=== PATIENT | male | born 1970 | race African-American/Black ===

== ENCOUNTER 2016-08-25 08:43 | Emergency (ER) | payer MEDICAID ==
[2016-08-25 08:52] VITALS: BMI 30.1
--- NOTE | 2016-08-25 09:23 | DR.GENAD ---
HPI - PCP Primary Care Physician: none - Complaint/Symptoms Chief Complaint Doctors Comments: Occassional SOB and lightheadedness. Chief Complaint:: pt has been feeling lightheaded the past couple of days he has not had his meds in about a month because he can no longer afford them at this time - Source History Provided: Patient - Mode of Arrival Mode of Arrival: Ambulatory - Timing Onset of Chief Complaint: 08/23/16 - Duration Duration: Intermittent Duration: Minutes - Severity Severity: Mild PMH - PMH Past Medical History: Yes Past Medical History: Coronary Artery Disease, Hypertension, [place] Past Surgical History: Yes Surgical History: CABG/Valve Surgery, Other - Family History History of Family Medical Conditions: Yes Family Medical History: Diabetes Mellitus - Social History Does patient currently use any type of tobacco product: Yes Have you used tobacco products in the last 12 months: Yes Type of Tobacco Use: Cigarettes How many years tobacco product used: 15 Does any household member use tobacco: No Alcohol Use: None Do you use any recreational Drugs:: No Lives With: Family Lives Where: Home - infectious screening In the last 2 months have you had wt loss of >10#?: NO Have you had fever, night sweats or hemotysis?: No Have you traveled outside the country in the last 6 months?: No Isolation: Standard ROS - Review of Systems Constitutional: No Symptoms Reported Eyes: No Symptoms Reported ENTM: No Symptoms Reported Respiratoy: Short of Breath Cardiovascular: No Symptoms Reported Gastrointestinal/Abdominal: No Symptoms Reported Genitourinary: No Symptoms Reported Neurological: Dizziness Musculoskeletal: No Symptoms Reported Integumentary: No Symptoms Reported Hematologic/Lymphatic: No Symptoms Reported Endocrine: No Symptoms Reported Psychiatric: Anxiety All Other Systems: Reviewed and Negative PE - Vital Signs Vitals: Temperature 98 F Pulse Rate 71 Respiratory Rate 18 Blood Pressure [Left Arm] 129/69 Blood Pressure [Standing] 143/89 Blood Pressure [Sitting] 160/92 Blood Pressure [Lying] 139/69 Blood Pressure 148/81 O2 Sat by Pulse Oximetry 100 - General Limitations: No Limitations General Appearance: In No Apparent Distress - Head Head Exam: Normal Inspection - Neck Neck Exam: Normal Inspection - Chest Chest Inspection: Normal Inspection - Respiratory Respiratory Exam: Normal Lung Sounds Bilat Respiratory Exam: Bilateral Clear to Auscultation - Cardiovascular Cardiovascular Exam: Regular Rate, Normal Rhythm, Systolic Murmur - Abdominal Exam Abdominal Exam: Normal Inspection - Extremities Extremities Exam: Normal Inspection - Back Back Exam: Normal Inspection - Neurologic Neurological Exam: Alert, Oriented X3, CN II-XII Intact, Normal Gait - Psychiatric Psychiatric Exam: Anxious - Skin Skin Exam: Warm, Dry, Intact, Normal Color MDM - Differential Diagnosis Differential Diagnosis: Nicotine withdrawal, anxiety ROR - Labs Reviewed Result Diagrams: 08/25/16 09:34 08/25/16 09:34 Laboratory: WBC 4.7 X10^3/uL (3.6-10.0) 08/25/16 09:34 RBC 4.53 X10^6/uL (4.7-6.0) L 08/25/16 09:34 Hgb 15.3 g/dL (13.5-18.0) 08/25/16 09:34 Hct 43.3 % (42.0-54.0) 08/25/16 09:34 MCV 95.6 fL (80.0-100.0) 08/25/16 09:34 MCH 33.8 pg (27.0-34.0) 08/25/16 09:34 MCHC 35.3 g/dL (33.0-35.0) H 08/25/16 09:34 RDW 14.1 % (11.6-16.5) 08/25/16 09:34 Plt Count 277 X10^3/uL (150.0-450.0) 08/25/16 09:34 MPV 9.0 fL (7.4-11.0) 08/25/16 09:34 Neut % 37.4 % (42.0-75.0) L 08/25/16 09:34 Lymph % 49.2 % (21.0-51.0) 08/25/16 09:34 [place] % 10.3 % (0.0-13.0) 08/25/16 09:34 Eos % 2.1 % (0.9-2.9) 08/25/16 09:34 Baso % 1.0 % (0.2-1.0) 08/25/16 09:34 Neut # 1.8 x10^3/uL (2.2-4.8) L 08/25/16 09:34 Lymph # 2.3 X10^3/uL (1.3-2.9) 08/25/16 09:34 [place] # 0.5 x10^3/uL (0.3-0.8) 08/25/16 09:34 Eos # 0.1 x10^3/uL (0.0-0.2) 08/25/16 09:34 Baso # 0.0 X10^3/uL (0.0-0.1) 08/25/16 09:34 Absolute Nucleated RBC 0.1 /100WBC 08/25/16 09:34 Sodium 141 mmol/L (136-145) 08/25/16 09:34 Corrected Sodium TNP 08/25/16 09:34 Potassium 3.8 mmol/L (3.5-5.1) 08/25/16 09:34 Chloride 107 mmol/L (98-107) 08/25/16 09:34 Carbon Dioxide 26.2 mmol/L (21-32) 08/25/16 09:34 BUN 11 mg/dL (7-18) 08/25/16 09:34 Creatinine 1.05 mg/dL (0.70-1.30) 08/25/16 09:34 Est GFR (MDRD) Af Amer > 60 (>60) 08/25/16 09:34 Est GFR (MDRD) Non-Af > 60 (>60) 08/25/16 09:34 Glucose 108 mg/dL (65-99) H 08/25/16 09:34 Calcium 8.6 mg/dL (8.5-10.1) 08/25/16 09:34 Corrected Calcium TNP 08/25/16 09:34 Total Bilirubin 0.50 mg/dL (0.2-1.0) 08/25/16 09:34 AST 18 Units/L (15-37) 08/25/16 09:34 ALT 24 Units/L (12-78) 08/25/16 09:34 Alkaline Phosphatase 83 Units/L (46-116) 08/25/16 09:34 B-Natriuretic Peptide 23.9 pg/mL (0-79) 08/25/16 09:34 Total Protein 7.5 g/dL (6.4-8.2) 08/25/16 09:34 Albumin 3.6 g/dL (3.4-5.0) 08/25/16 09:34 Globulin 3.9 g/dL (2.5-4.5) 08/25/16 09:34 Albumin/Globulin Ratio 0.9 Ratio (1.1-2.1) L 08/25/16 09:34 - EKG Compared to prior EKG Dated: 05/03/16 (no acute changes) Rate: 63 [place]: LAD Rhythm: NSR - Diagnosis Discharge Problem: Nicotine dependence with withdrawal, Anxiety about health, Arteriosclerotic cardiovascular disease (ASCVD), Hypertension, S/P CABG x 3 - Discharge Plan Disposition: 01 HOME, SELF-CARE - Follow ups/Referrals Follow ups/Referrals: NFD,None [Primary Care Provider] - 3 days - Instructions Instructions: Panic Attacks, [id number]
[2016-08-25 09:43] VITALS: BP 160/92
[2016-08-25 09:43] LABS: EOSINOPHILS # (AUTO) 0.1 x10^3/uL (0.0-0.2); EOSINOPHILS % (AUTO) 2.1 % (0.9-2.9); HEMATOCRIT 43.3 % (42.0-54.0); HEMOGLOBIN 15.3 g/dL (13.5-18.0); LYMPHOCYTES # (AUTO) 2.3 X10^3/uL (1.3-2.9); LYMPHOCYTES % (AUTO) 49.2 % (21.0-51.0); MEAN CORPUSCULAR HEMOGLOBIN 33.8 pg (27.0-34.0); MEAN CORPUSCULAR HGB CONC 35.3 g/dL (33.0-35.0); MEAN CORPUSCULAR VOLUME 95.6 fL (80.0-100.0); MONOCYTES # (AUTO) 0.5 x10^3/uL (0.3-0.8); MONOCYTES % (AUTO) 10.3 % (0.0-13.0); NEUTROPHILS # (AUTO) 1.8 x10^3/uL (2.2-4.8); NEUTROPHILS % (AUTO) 37.4 % (42.0-75.0); PLATELET COUNT 277 X10^3/uL (150.0-450.0); RED BLOOD COUNT 4.53 X10^6/uL (4.7-6.0); RED CELL DISTRIBUTION WIDTH 14.1 % (11.6-16.5); WHITE BLOOD COUNT 4.7 X10^3/uL (3.6-10.0)
[2016-08-25 09:53] LABS: ALANINE AMINOTRANSFERASE 24 Units/L (12-78); ALBUMIN 3.6 g/dL (3.4-5.0); ALKALINE PHOSPHATASE 83 Units/L (46-116); ASPARTATE AMINO TRANSFERASE 18 Units/L (15-37); BLOOD UREA NITROGEN 11 mg/dL (7-18); CALCIUM 8.6 mg/dL (8.5-10.1); CARBON DIOXIDE 26.2 mmol/L (21-32); CHLORIDE 107 mmol/L (98-107); CREATININE 1.05 mg/dL (0.70-1.30); GLUCOSE 108 mg/dL (65-99); SODIUM 141 mmol/L (136-145); TOTAL PROTEIN 7.5 g/dL (6.4-8.2); eGFR BLACK RACES > 60 (>60); eGFR NON BLACK RACES > 60 (>60)
--- NOTE | 2016-08-25 10:04 | RAD ---
HISTORY: Shortness of breath. Study: Chest two views Comparison: May 03, 2016. Findings: The trachea is midline. The cardiac silhouette is enlarged. Median sternotomy wires are again noted . There is no evidence of consolidation, significant infiltrate, effusion, or pneumothorax. The [facility] thorax is unremarkable. IMPRESSION: 1. No acute pulmonary abnormality. 2. Cardiomegaly. Reported By:
== END 2016-08-25 11:02 | disposition home or self-care (01) ==
LOC: ER 08:43
DX: F17.200 Nicotine dependence, unspecified, uncomplicated (principal); F41.8 Other specified anxiety disorders; I25.10 Atherosclerotic heart disease of native coronary artery without angina pectoris; Z95.1 Presence of aortocoronary bypass graft
CPT/HCPCS: 36415; 71020; 80053; 83880; 85025; 93005; 93010; 99282

== ENCOUNTER 2017-01-12 18:00 | Emergency (ER) | payer MEDICAID, OTHER ==
--- NOTE | 2017-01-12 18:24 | DR.CP ---
HPI - Time Seen Time seen: 18:20 - PCP Primary Care Physician: JESUSITA - HPI Comment HPI Comment: PATIENT DEVE PRECORDIAL CHEST PAIN AND LEFT SHOULDER PAIN TIMES SEVERAL HOURS. 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 NO IMMEDIATE PAIN. SHOULDER MOTION LT DECREASE. STRONG FAMILY HISTORY OF CAD. PATIENT HAD GABG, 3 VESSLES 10 MONTHS AGO. CURRENT MEDICATION NOT TAKING RECOMMENDED. OUT OF SEVERAL OF HIS MEDS FOR FEW DAYS NOW. - Complaint Chief Complaint Doctor Comments: CHEST PAIN. Chief Complaint:: PT. C/O PAIN TO UNDER LEFT BREAST. PT. STATES "IT FEELS LIKE A PULLED MUSCLE." UNABLE TO ELEVATE LEFT ARM BECAUSE OF THE DISCOMFORT. PT. STATES HE WAS OUT IN THE YARD YESTERDAY PICKING UP STUFF AND THE PAIN BEGAN LAST NIGHT. PAIN WORSENS ON MOVEMENT. - Reviewed Nurses Notes Review: Yes - Source History Provided: Patient - Mode of Arrival Mode of Arrival: Ambulatory - Timing Onset of Chief Complaint: 01/11/17 Came on: Suddenly Pain: Present Now - Duration Duration: Constant Duration: Days - Location Location of Chest Pain: Left, Chest Chest Pain Radiation Location: Left Arm, Left Shoulder - Context PE Risk Factors: Recent Trauma/Surgery History of: Similar pain in the past Prehospital Care: None - Quality Quality: Sharp - Severity Severity: Moderate - Modifying Factors Worsens: Coughing, Movement Impoves: Nothing - Associated Signs and Symptoms Associated Signs and Symptoms: Shortness of Breath (ON EXERTION) PMH - PMH Past Medical History: Yes Past Medical History: Coronary Artery Disease, Hypertension, [place] Past Surgical History: Yes Surgical History: CABG/Valve Surgery, Other - Family History History of Family Medical Conditions: Yes Family Medical History: Diabetes Mellitus - Social History Does patient currently use any type of tobacco product: No Have you used tobacco products in the last 12 months: Yes Type of Tobacco Use: None Does any household member use tobacco: No Alcohol Use: None Do you use any recreational Drugs:: No Lives With: Spouse Lives Where: Home - infectious screening In the last 2 months have you had wt loss of >10#?: NO Have you had fever, night sweats or hemotysis?: No Have you traveled outside the country in the last 6 months?: No Isolation: Standard ROS - Review of Systems Constitutional: No Symptoms Reported, Weakness, Fatigue. negative: Chills, Fever Eyes: No Symptoms Reported ENTM: No Symptoms Reported Respiratoy: Short of Breath. negative: Productive Cough, Non-Productive Cough, Wheezing, Hemoptysis Cardiovascular: Chest Pain. negative: Edema Gastrointestinal/Abdominal: negative: Abdominal Pain, Diarrhea, Nausea, Vomiting Genitourinary: No Symptoms Reported. negative: Dysuria, Frequency, Hematuria Neurological: Weakness Musculoskeletal: Muscle Pain Integumentary: No Symptoms Reported Hematologic/Lymphatic: No Symptoms Reported Endocrine: No Symptoms Reported All Other Systems: Reviewed and Negative PE - Vitals Vitals: Temperature 98.7 F Pulse Rate [Apical] 66 Pulse Rate 66 Respiratory Rate 21 Blood Pressure [Left Arm] 126/63 Blood Pressure [Standing] 143/89 Blood Pressure [Sitting] 160/92 Blood Pressure [Lying] 139/69 Blood Pressure 142/90 O2 Sat by Pulse Oximetry 94 - General Limitations: No Limitations General Appearance: Alert - Head Head Exam: Normal Inspection - Eyes Eye exam: Normal Appearance - ENT ENT Exam: Normal External Ear Exam - Chest Chest Inspection: Symmetric Chest Wall Rise - Respiratory Respiratory Exam: Normal Lung Sounds Bilat Respiratory Exam: Bilateral Clear to Auscultation - Cardiovascular Cardiovascular Exam: Regular Rate, Normal Rhythm, Normal Heart Sounds Pulse: Normal, Radial, Femoral Edema: Normal - Abdominal Exam Abdominal Exam: Normal Bowel Sounds, Soft. negative: Tenderness - Extremities Extremities Exam: Normal Inspection - Back Back Exam: Normal Inspection - Neurologic Neurological Exam: Alert, Oriented X3 - Psychiatric Psychiatric Exam: Normal Affect, Normal Mood - Skin Skin Exam: Normal Color MDM - Differential Diagnosis Differential Diagnosis: Angina, Chest Wall Pain, Esophageal Reflux/Spasm, Gastritis, Myocardial Infarction, Pericarditis, Pleuritis, Pancreatitis, Pneumonia, Pneumothorax, Pulmonary Embolus Course - Treatment Treatment: SEE ORDERS. - Consultation Consultation Comments: DISCUSS PATIENT WITH DR. EMERSON. HE WILL ADMIT PATIENT. - Education/Counseling Education/Counseling: Patient, Education Educated On: Treatment, Diagnosis ROR - Labs Reviewed Laboratory Results Reviewed?: Yes Result Diagrams: 01/13/17 04:15 01/13/17 04:15 Laboratory: WBC 6.0 X10^3/uL (3.6-10.0) 01/13/17 04:15 RBC 4.45 X10^6/uL (4.7-6.0) L 01/13/17 04:15 Hgb 15.4 g/dL (13.5-18.0) 01/13/17 04:15 Hct 43.8 % (42.0-54.0) 01/13/17 04:15 MCV 98.3 fL (80.0-100.0) 01/13/17 04:15 MCH 34.5 pg (27.0-34.0) H 01/13/17 04:15 MCHC 35.1 g/dL (33.0-35.0) H 01/13/17 04:15 RDW 13.2 % (11.6-16.5) 01/13/17 04:15 Plt Count 239 X10^3/uL (150.0-450.0) 01/13/17 04:15 MPV 10.2 fL (7.4-11.0) 01/13/17 04:15 Neut % 40.0 % (42.0-75.0) L 01/13/17 04:15 Lymph % 44.8 % (21.0-51.0) 01/13/17 04:15 [place] % 11.4 % (0.0-13.0) 01/13/17 04:15 Eos % 3.0 % (0.9-2.9) H 01/13/17 04:15 Baso % 0.8 % (0.2-1.0) 01/13/17 04:15 Neut # 2.4 x10^3/uL (2.2-4.8) 01/13/17 04:15 Lymph # 2.7 X10^3/uL (1.3-2.9) 01/13/17 04:15 [place] # 0.7 x10^3/uL (0.3-0.8) 01/13/17 04:15 Eos # 0.2 x10^3/uL (0.0-0.2) 01/13/17 04:15 Baso # 0.1 X10^3/uL (0.0-0.1) 01/13/17 04:15 Absolute Nucleated RBC 0.8 /100WBC 01/13/17 04:15 Sodium 138 mmol/L (136-145) 01/13/17 04:15 Corrected Sodium TNP 01/13/17 04:15 Potassium 3.8 mmol/L (3.5-5.1) 01/13/17 04:15 Chloride 105 mmol/L (98-107) 01/13/17 04:15 Carbon Dioxide 25.6 mmol/L (21-32) 01/13/17 04:15 BUN 10 mg/dL (7-18) 01/13/17 04:15 Creatinine 1.09 mg/dL (0.70-1.30) 01/13/17 04:15 Est GFR (MDRD) Af Amer > 60 (>60) 01/13/17 04:15 Est GFR (MDRD) Non-Af > 60 (>60) 01/13/17 04:15 Glucose 102 mg/dL (65-99) H 01/13/17 04:15 Calcium 8.6 mg/dL (8.5-10.1) 01/13/17 04:15 Corrected Calcium TNP 01/13/17 04:15 Total Bilirubin 0.60 mg/dL (0.2-1.0) 01/13/17 04:15 AST 20 Units/L (15-37) 01/13/17 04:15 ALT 17 Units/L (12-78) 01/13/17 04:15 Alkaline Phosphatase 89 Units/L (46-116) 01/13/17 04:15 Creatine Kinase 280 Units/L (39-308) 01/13/17 04:15 CK-MB (CK-2) 2.1 ng/mL (0-4.0) 01/13/17 04:15 CK/CKMB % Calc 0.8 % (<4) 01/13/17 04:15 Troponin I < 0.02 ng/mL (0-1.5) 01/13/17 04:15 Total Protein 7.3 g/dL (6.4-8.2) 01/13/17 04:15 Albumin 3.4 g/dL (3.4-5.0) 01/13/17 04:15 Globulin 3.9 g/dL (2.5-4.5) 01/13/17 04:15 Albumin/Globulin Ratio 0.9 Ratio (1.1-2.1) L 01/13/17 04:15 - XRAY XRAY Findings: REPORT DISCUSS WITH PATIENT. - EKG Rhythm: NSR (EKG NOTED) - Diagnosis Discharge Problem: Chest pain Qualifiers: Chest pain type: precordial pain Qualified Code(s): R07.2 - Precordial pain - Discharge Plan Disposition: 09 ADMITTED INPATIENT Condition: Stable - Follow ups/Referrals - Instructions
[2017-01-12 18:45] LABS: BASOPHILS # (AUTO) 0.1 X10^3/uL (0.0-0.1); BASOPHILS % (AUTO) 0.9 % (0.2-1.0); EOSINOPHILS # (AUTO) 0.2 x10^3/uL (0.0-0.2); HEMATOCRIT 42.2 % (42.0-54.0); HEMOGLOBIN 14.8 g/dL (13.5-18.0); LYMPHOCYTES # (AUTO) 3.6 X10^3/uL (1.3-2.9); LYMPHOCYTES % (AUTO) 45.5 % (21.0-51.0); MEAN CORPUSCULAR HEMOGLOBIN 34.4 pg (27.0-34.0); MEAN CORPUSCULAR HGB CONC 35.2 g/dL (33.0-35.0); MEAN CORPUSCULAR VOLUME 97.8 fL (80.0-100.0); MEAN PLATELET VOLUME 8.8 fL (7.4-11.0); MONOCYTES % (AUTO) 12.2 % (0.0-13.0); NEUTROPHILS # (AUTO) 3.1 x10^3/uL (2.2-4.8); NEUTROPHILS % (AUTO) 39.4 % (42.0-75.0); PLATELET COUNT 252 X10^3/uL (150.0-450.0); RED BLOOD COUNT 4.31 X10^6/uL (4.7-6.0); RED CELL DISTRIBUTION WIDTH 13.1 % (11.6-16.5); WHITE BLOOD COUNT 7.8 X10^3/uL (3.6-10.0)
--- NOTE | 2017-01-12 19:00 | RAD ---
HISTORY: 46-year-old male with pain under is left breast, feels like a pulled muscle. Study: Frontal view of the chest. Comparison: Chest radiograph 08/23/2016 Findings: Surgical devices are stable. The trachea is midline. The cardiac silhouette is stably enlarged. The lungs are clear without foca l consolidation, effusion or pneumothorax. Soft tissues are unremarkable. Osseous structures are unr emarkable. IMPRESSION: 1. No acute cardiopulmonary disease. Reported By:
[2017-01-12 19:05] LABS: BLOOD UREA NITROGEN 10 mg/dL (7-18); CALCIUM 8.8 mg/dL (8.5-10.1); CHLORIDE 105 mmol/L (98-107); CREATININE 1.17 mg/dL (0.70-1.30); SODIUM 140 mmol/L (136-145); TROPONIN I < 0.02 ng/mL (0-1.5); eGFR BLACK RACES > 60 (>60); eGFR NON BLACK RACES > 60 (>60)
[2017-01-12 19:09] LABS: ALANINE AMINOTRANSFERASE 17 Units/L (12-78); ALBUMIN 3.8 g/dL (3.4-5.0); ALKALINE PHOSPHATASE 90 Units/L (46-116); ASPARTATE AMINO TRANSFERASE 22 Units/L (15-37); CKMB % 0.9 % (<4); CREATINE KINASE 331 Units/L (39-308); TOTAL PROTEIN 7.7 g/dL (6.4-8.2)
[2017-01-12 22:11] VITALS: BMI 32.7
[2017-01-13 00:04] LABS: CKMB % 0.8 % (<4); CREATINE KINASE 310 Units/L (39-308); CREATINE KINASE MB 2.4 ng/mL (0-4.0); TROPONIN I < 0.02 ng/mL (0-1.5)
[2017-01-13 04:36] LABS: ALANINE AMINOTRANSFERASE 17 Units/L (12-78); ALBUMIN 3.4 g/dL (3.4-5.0); ALKALINE PHOSPHATASE 89 Units/L (46-116); ASPARTATE AMINO TRANSFERASE 20 Units/L (15-37); BLOOD UREA NITROGEN 10 mg/dL (7-18); CALCIUM 8.6 mg/dL (8.5-10.1); CARBON DIOXIDE 25.6 mmol/L (21-32); CHLORIDE 105 mmol/L (98-107); CREATININE 1.09 mg/dL (0.70-1.30); SODIUM 138 mmol/L (136-145); TOTAL PROTEIN 7.3 g/dL (6.4-8.2); eGFR BLACK RACES > 60 (>60); eGFR NON BLACK RACES > 60 (>60)
[2017-01-13 04:58] LABS: CKMB % 0.8 % (<4); CREATINE KINASE 280 Units/L (39-308); CREATINE KINASE MB 2.1 ng/mL (0-4.0); TROPONIN I < 0.02 ng/mL (0-1.5)
[2017-01-13 06:20] LABS: BASOPHILS # (AUTO) 0.1 X10^3/uL (0.0-0.1); BASOPHILS % (AUTO) 0.8 % (0.2-1.0); EOSINOPHILS # (AUTO) 0.2 x10^3/uL (0.0-0.2); HEMATOCRIT 43.8 % (42.0-54.0); HEMOGLOBIN 15.4 g/dL (13.5-18.0); LYMPHOCYTES # (AUTO) 2.7 X10^3/uL (1.3-2.9); LYMPHOCYTES % (AUTO) 44.8 % (21.0-51.0); MEAN CORPUSCULAR HEMOGLOBIN 34.5 pg (27.0-34.0); MEAN CORPUSCULAR HGB CONC 35.1 g/dL (33.0-35.0); MEAN CORPUSCULAR VOLUME 98.3 fL (80.0-100.0); MEAN PLATELET VOLUME 10.2 fL (7.4-11.0); MONOCYTES # (AUTO) 0.7 x10^3/uL (0.3-0.8); MONOCYTES % (AUTO) 11.4 % (0.0-13.0); NEUTROPHILS # (AUTO) 2.4 x10^3/uL (2.2-4.8); PLATELET COUNT 239 X10^3/uL (150.0-450.0); RED BLOOD COUNT 4.45 X10^6/uL (4.7-6.0); RED CELL DISTRIBUTION WIDTH 13.2 % (11.6-16.5)
[2017-01-13 12:00] VITALS: BP 154/90
== END 2017-01-13 13:00 | disposition home or self-care (01) ==
LOC: ER 18:09 → MED/SURG 19:52
PROVIDERS: ADMIT Internal Medicine; ATTEND Internal Medicine
DX: R07.2 Precordial pain (principal); I25.10 Atherosclerotic heart disease of native coronary artery without angina pectoris; R06.02 Shortness of breath; R94.31 Abnormal electrocardiogram [ECG] [EKG]; I10 Essential (primary) hypertension; M25.512 Pain in left shoulder; Z79.01 Long term (current) use of anticoagulants
CPT/HCPCS: 36415; 71010; 80053; 82550; 82553; 84484; 85025; 93005; 93010; 94760; 96365; 99284; A4222; G0378

== ENCOUNTER → 2017-02-01 | Outpatient (CLI) | payer OTHER ==
[2017-01-13 12:00] VITALS: BP 154/90
--- NOTE | 2017-02-01 10:52 | RAD ---
Examination: Left elbow, three views History: Neck pain Findings: There is no evidence for fracture, dislocation or synovial distension. Impression: No significant abnormality demonstrated. Reported By:
--- NOTE | 2017-02-01 10:55 | RAD ---
Examination: Cervical spine, AP and lateral views History: Elbow and joint pain Findings: Normal alignment of C1-C7. Loss of normal curvature. Degenerative disc narrowing and margin al osteophyte formation at C5-6. The atlantoaxial complex is normal. There is arthritic involvement o f the lower uncinate processes, left greater than right. Impression: 1. 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 2. Loss of normal curvature may reflect neck pain or muscle spasm. Reported By:
== END ==
LOC: RAD 09:21
PROVIDERS: ATTEND Nurse Practitioner Family
DX: M25.522 Pain in left elbow (principal); M50.322 Other cervical disc degeneration at C5-C6 level
CPT/HCPCS: 72040; 73070